=== PATIENT | female | born 2000 | race Two or more races ===

== ENCOUNTER 2023-05-18 18:01 | Emergency (ER) | payer OTHER ==
[~2023-05-18] VITALS: Ht 149.9 cm; Wt 65.3 kg
[2023-05-18 21:10] LABS: HEMATOCRIT 35.5 % (36.0-45.00); HEMOGLOBIN 11.9 g/dL (12.0-15.00); MEAN CELL VOLUME 92.6 fL (80.00-100.00); MEAN CORPUSCULAR HGB CONC 33.5 g/dl (32.0-36.0); PLATELET COUNT 285 K/uL (150-450); RED BLOOD COUNT 3.83 M/uL (4.00-6.00); RED CELL DISTRIBUTION WIDTH 12.7 % (11.5-14.5)
[2023-05-18 21:12] LABS: PH,URINE 5.5 (5.0-8.0); URINE APPEARANCE Clear; URINE BILIRRUBIN Negative (NEGATIVE); URINE BLOOD Negative; URINE COLOR Yellow; URINE GLUCOSE Negative (NEGATIVE); URINE LEUKOCYTE Moderate; URINE NITRATE Negative; URINE PROTEIN Negative (NEGATIVE)
[2023-05-18 21:16] LABS: URINE BACTERIA 692.9 uL (0.0-1933); URINE EPITHELIAL CELLS 40.8 uL (0.0-38.8); URINE RBC 7.4 uL (0.0-20.8); URINE WBC 64.7 uL (0.0-23.2)
== END 2023-05-19 00:28 | disposition home or self-care (01) ==
LOC: ER 18:02
PROVIDERS: Emergency Medicine
DX: N73.9 Female pelvic inflammatory disease, unspecified (principal)